=== PATIENT | male | born 1995 | race Caucasian/White ===

== ENCOUNTER → 2016-12-23 | Outpatient (CLI) | payer BC ==
[~2016-12-23] MED LIST: ALBU8.5H8 INH; GADOBUTROL 10 MMOL/10 ML VIAL ONE; LIDOCAINE 1%, 20ML ONE; OMNIPAQUE 300 MG/ML, 10ML VIAL ONE; OXYC-302 PO; ROPivacaine/PF 0.2%, 10 ML ONE
== END | disposition home or self-care (01) ==
LOC: RAD 13:59
PROVIDERS: ATTEND Orthopaedic Surgery
DX: M25.312 Other instability, left shoulder (principal); M25.812 Other specified joint disorders, left shoulder; G89.29 Other chronic pain
CPT/HCPCS: 73040; 73222; A9585; J2795; J3490; Q9967

== ENCOUNTER 2019-12-17 14:11 | Emergency (ER) | payer BC ==
[~2019-12-17] VITALS: Ht 200.7 cm; Wt 89.0 kg
[~2019-12-17 14:11] MED LIST changes: -GADOBUTROL 10 MMOL/10 ML VIAL ONE; -LIDOCAINE 1%, 20ML ONE; -OMNIPAQUE 300 MG/ML, 10ML VIAL ONE; -ROPivacaine/PF 0.2%, 10 ML ONE
[2019-12-17 14:13] VITALS: BP 128/86
--- NOTE | 2019-12-17 15:15 | NUR ---
PT STATES ABD AND N/V X4 DAYS. PT ALSO CONCERNED ABOUT CHRONIC SHOULDER PAIN, STATES HIS SHOULDER PAIN IS "REALLY BAD TODAY" AND HIS PAIN IS NOT RELIEVED BY HOME NARCOTICS. IV STARTED PER ORDERS, LABS DRAWN AND SENT TO LAB. PT PLACED ON MONITORS, VSS. WILL FOLLOW ORDERS.
--- NOTE | 2019-12-17 15:20 | NUR ---
PT IS VERY ANXIOUS, PACING AROUND ROOM, STATES HX OF ANXIETY. ATTEMPTS TO CALM PT MADE, PT SAT BACK IN BED. WILL MEDICATE PT PER ORDERS.
[2019-12-17 15:21] LABS: BASOPHILS # (AUTO) 0.02 x10^3/uL (0-0.1); BASOPHILS % (AUTO) 0 % (0-1); EOSINOPHILS # (AUTO) 0.03 x10^3/uL (0-0.4); EOSINOPHILS % (AUTO) 1 % (1-7); LYMPHOCYTES # (AUTO) 1.04 x10^3/uL (1-3.4); LYMPHOCYTES % (AUTO) 18 % (22-44); MD NO; MEAN CORPUSCULAR HEMOGLOBIN 30.3 pg (27.5-34.5); MEAN CORPUSCULAR HGB CONC 33.9 g/dL (33.2-36.2); MEAN CORPUSCULAR VOLUME 89.3 fL (81-97); MEAN PLATELET VOLUME 7.9 fL (7.4-10.4); MONOCYTES # (AUTO) 0.28 x10^3/uL (0.2-0.8); MONOCYTES % (AUTO) 5 % (2-9); NEUTROPHILS # (AUTO) 4.52 x10^3/uL (1.8-6.8); NEUTROPHILS % (AUTO) 77 % (42-75); PLATELET COUNT 288 x10^3/uL (130-400); RED BLOOD COUNT 5.58 x10^6/uL (4.38-5.82); RED CELL DISTRIBUTION WIDTH 12.1 % (9.4-14.8)
[2019-12-17] MEDS ORDERED: FAMOTIDINE 20 MG/2 ML IV ONE (15:30)
[2019-12-17] MEDS ORDERED: SODIUM CHLORIDE FLUSH 10ML SYR IVF ONE (15:30)
[2019-12-17] MEDS ORDERED: SODIUM CHLORIDE 0.9% 1,000ML IVBOLUS ONE (15:30)
[2019-12-17] MEDS ORDERED: ONDANSETRON 2MG/ML, 2ML IVPush ONE (15:30)
[2019-12-17] MEDS ORDERED: LORazepam 2 MG/ML, 1ML IVPush ONE (15:30)
[2019-12-17 15:31] LABS: ALANINE AMINOTRANSFERASE 32 U/L (12-78); ALBUMIN 5.1 g/dL (3.4-5.0); ANION GAP 9 mmol/L (5-15); CALCIUM 10.2 mg/dL (8.5-10.1); CHLORIDE 105 mmol/L (98-107); CREATININE 1.33 mg/dL (0.7-1.3)
[2019-12-17 15:33] LABS: ALKALINE PHOSPHATASE 92 U/L (45-117); BILIRUBIN,TOTAL 0.8 mg/dL (0.2-1.0)
[2019-12-17] MEDS ORDERED: ONDANSETRON 2MG/ML, 2ML ONE (16:00)
[2019-12-17] MEDS ORDERED: LORazepam 2 MG/ML, 1ML ONE (16:00)
[2019-12-17] MEDS ORDERED: FAMOTIDINE 20 MG/2 ML ONE (16:01)
--- NOTE | 2019-12-17 16:15 | NUR ---
PT UPSET, STATING HE WANTS TO LEAVE THE ER. PT STATES "I WANT TO JUST GO HOME AND TAKE MY OWN PAIN MEDICATION SINCE YOU ARENT GIVING ME ANYTHING." EXPLAINED TO PT POC, WILL MEDICATE PER ORDERS, INCLUDING ATIVAN FOR ANXIETY. PT STATES WILL ALSO TAKE HIS OWN XANAX IN ER. EXPLAINED TO PT HE MAY NOT TAKE HIS OWN MEDICATIONS WHILE IN ER. PT REMAINS ANXIOUS AND UPSET. PT WANTS TO LEAVE ER. PT'S IV D/C'D. PT HAS ALL OWN BELONGINGS UPON LEAVING ER. ATTEMPTED TO EXPLAIN TO PT RISKS OF LEAVING AMA.
== END 2019-12-17 16:38 | disposition left against medical advice (07) ==
LOC: ED 16:30
DX: R11.2 Nausea with vomiting, unspecified (principal); Z20.828 Contact with and (suspected) exposure to other viral communicable diseases; B34.9 Viral infection, unspecified
CPT/HCPCS: 36415; 74021; 80053; 83690; 85025; 87635; 99284

== ENCOUNTER 2021-01-10 12:12 | Outpatient (CLI) | payer BC | END 2021-01-10 23:59 | disposition home or self-care (01) | LOC: RAD 12:12 | PROVIDERS: ATTEND Radiology Diagnostic Radiology | DX: M25.512 Pain in left shoulder (principal); M25.312 Other instability, left shoulder | CPT/HCPCS: 23350; 73040; 73222; A9575; J2795; J3490; Q9967 ==